=== PATIENT | female | born 1990 | race African-American/Black ===

== ENCOUNTER 2022-04-11 23:34 | Emergency (ER) | payer BC, OTHER ==
[2022-04-12] MEDS ORDERED: Ibuprofen 200 MG TAB ONE (00:49)
== END 2022-04-12 01:09 | disposition home or self-care (01) ==
LOC: NAV ERS 23:34
DX: R07.9 Chest pain, unspecified (principal); L83 Acanthosis nigricans
CPT/HCPCS: 71045; 93005